=== PATIENT | female | born 1945 | race Caucasian/White ===

== ENCOUNTER 2016-08-10 17:24 | Emergency (ER) | payer MEDICARE, BC ==
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
== END 2016-08-10 18:21 | disposition home or self-care (01) ==
LOC: ER 17:24
DX: S00.33XA Contusion of nose, initial encounter (principal); I10 Essential (primary) hypertension; Z79.899 Other long term (current) drug therapy; W22.8XXA Striking against or struck by other objects, initial encounter; Y92.009 Unspecified place in unspecified non-institutional (private) residence as the place of occurrence of the external cause

== ENCOUNTER 2016-11-22 11:59 | Emergency (ER) | payer MEDICARE, BC ==
--- NOTE | 2016-11-23 15:44 | ER ---
ADMIT: 11/22/2016 RM/LOC: ER [facility] MR#: [id number] [id number] [place], [place] [address] JUAN DAVID SOLIS [address] [place] [address] Emergency Room Report SEX: F AGE: 71 : 1945 DATE: 11/22/2016 This is a 71-year-old female, presents to the emergency room complaining of right shoulder pain. She says it started 3 days ago. She likes to paint and she thinks between the painting and gardening did her in. She does not have any swelling or redness. She says she gets a little kink and pain in the shoulder but is posterior not anterior. As I go in the room, she is resting comfortably. After she comes back from Radiology, she is texting on the phone using her right arm. PAST MEDICAL HISTORY: Hypertension, rotator cuff problems. MEDICATIONS: She uses: 1. Toprol. 2. Norvasc. 3. Lisinopril for her high blood pressure as well as aspirin. PHYSICAL EXAMINATION: GENERAL: Well-nourished and well-developed female. VITAL SIGNS: Blood pressure still way up at 170/92 with a heart rate of 68, respirations 18, temp is 97.9, and O2 sats 97%. EXTREMITIES: Upper extremity right shoulder tenderness on posterior palpation. She has decreased active range of motion to the right but as long as she keeps the shoulder close to her body, she is able to manage. No lymphadenopathy. No joint swelling or effusion. SKIN: Good color and turgor. NEURO: Sensation appropriate, normal. Rest of the physical examination within normal limits. X-ray does not show any fracture. CLINICAL IMPRESSION: Right shoulder rotator cuff strain. Given Ultram #20 for pain control. Close followup with Dr. Nguyen. She has to wear shoulder immobilizer until she sees Dr. Nguyen and continue her medications as prescribed by Dr. Duncan. WENDY George / Terry Chin MD / andree JOB #: [id number] CC: Terry Chin MD, Attending Physician Anupama Duncan MD, Family Physician
== END 2016-11-22 14:26 | disposition home or self-care (01) ==
LOC: ER 11:59
DX: S46.011A Strain of muscle(s) and tendon(s) of the rotator cuff of right shoulder, initial encounter (principal); I10 Essential (primary) hypertension; Z79.82 Long term (current) use of aspirin; Z79.899 Other long term (current) drug therapy; Y93.89 Activity, other specified